=== PATIENT | female | born 1980 | race American Indian/Alaskan Native ===

== ENCOUNTER 2017-06-02 15:13 | Emergency (ER) | payer SELFPAY ==
[2017-06-02 16:34] VITALS: BP 127/51
[2017-06-02 17:38] LABS: Basophils % (Auto) 0.2 % (0.0-1.8); Eosinophils # (Auto) 0.1 K/mm3 (0.0-0.4); Eosinophils % (Auto) 0.6 % (0.0-4.3); Hematocrit 39.3 % (30.3-42.9); Hemoglobin 12.8 gm/dl (10.1-14.3); Lymphocytes # (Auto) 2.1 K/mm3 (1.2-5.4); Lymphocytes % (Auto) 23.2 % (13.4-35.0); Mean Corpuscular HGB Conc 33 % (30-34); Mean Corpuscular Hemoglobin 31 pg (28-32); Mean Corpuscular Volume 94 fl (79-97); Monocytes # (Auto) 0.6 K/mm3 (0.0-0.8); Monocytes % (Auto) 6.1 % (0.0-7.3); Platelet Count 310 K/mm3 (140-440); Red Cell Distribution Width 14.2 % (13.2-15.2)
--- NOTE | 2017-06-02 21:19 | Ultrasound Report ---
FINAL REPORT EXAM: US OB < = 14 WEEKS FETUS HISTORY: Possible ectopic R sided pain quantitative beta hCG 58,482 TECHNIQUE: Real-time sonography was performed of the gravid uterus transabdominally and endovaginally and images are submitted for interpretation. PRIORS: None. FINDINGS: The uterus appears normal and has a grossly normal appearing gestational sac. There is a normal appearing pole measuring 0.61 centimeters for an estimated gestational age of 6 weeks 3 days. A normal-appearing yolk sac is identified. The heart is beating at a rate of 121 beats per minute. The right ovary measures 3.3 x 3.4 x 3.2 cm. There a is right ovarian prominent follicle measuring 2.1 x 1.8 x 1.4 cm with a single thin septation. The left ovary is not seen. IMPRESSION: Single live intrauterine gestation, estimated gestational age 6 weeks 3 days for an estimated confinement of 01/23/2018.
--- NOTE | 2017-06-02 21:23 | Ultrasound Report ---
FINAL REPORT EXAM: US OB TRANSVAGINAL HISTORY: Possible ectopic R sided pain quantitative beta hCG 58,482 TECHNIQUE: Real-time sonography was performed of the gravid uterus transabdominally and endovaginally and images are submitted for interpretation. PRIORS: None. FINDINGS: The uterus appears normal and has a grossly normal appearing gestational sac. There is a normal appearing pole measuring 0.61 centimeters for an estimated gestational age of 6 weeks 3 days. A normal-appearing yolk sac is identified. The heart is beating at a rate of 121 beats per minute. The right ovary measures 3.3 x 3.4 x 3.2 cm. There a is right ovarian prominent follicle measuring 2.1 x 1.8 x 1.4 cm with a single thin septation. The left ovary is not seen. IMPRESSION: Single live intrauterine gestation, estimated gestational age 6 weeks 3 days for an estimated confinement of 01/23/2018.
== END 2017-06-02 22:26 | disposition left against medical advice (07) ==
LOC: ED 15:13
DX: Z53.21 Procedure and treatment not carried out due to patient leaving prior to being seen by health care provider (principal)
CPT/HCPCS: 36415; 76801; 76817; 84702; 85025; 86850; 86900; 86901

== ENCOUNTER 2017-08-21 11:43 | Outpatient (CLI) | payer MEDICAID ==
[2017-08-21 12:16] LABS: Bilirubin,Urine NEG (Negative); Blood,Urine NEG (Negative); Color,Urine Yellow (Yellow); Mucus,Urine FEW /HPF; Protein,Urine <15 mg/dL mg/dL (Negative); RBC,Urine < 1.0 /HPF (0.0-6.0); Urobilinogen,Urine < 2.0 mg/dL (<2.0)
[2017-08-21] MEDS ORDERED: NORMOSOL-R PH 7.4 1,000 ML IV ONE (12:24)
[2017-08-21] MEDS ORDERED: LACTATED RINGERS 1,000 ML IV ONE ×2 (12:27→13:00)
[2017-08-21] MEDS ORDERED: LACTATED RINGERS 1,000 ML ONE (12:27)
[2017-08-21 12:37] VITALS: BP 134/67
== END 2017-08-21 14:39 | disposition home or self-care (01) ==
LOC: TRG 11:43
PROVIDERS: ATTEND Obstetrics & Gynecology
DX: O26.892 Other specified pregnancy related conditions, second trimester (principal); K92.0 Hematemesis; R51 Headache; R10.30 Lower abdominal pain, unspecified; Z3A.20 20 weeks gestation of pregnancy
CPT/HCPCS: 59025; 81001; 96360; 96361; J7120

== ENCOUNTER 2017-09-08 14:38 | Outpatient (CLI) | payer MEDICAID ==
[2017-09-08] MEDS ORDERED: LACTATED RINGERS 500 ML IV ONE (15:44)
[2017-09-08 18:45] LABS: Hemoglobin TNR gm/dl (10.1-14.3); Red Blood Count TNR M/mm3 (3.65-5.03)
[2017-09-08 18:46] LABS: Hematocrit TNR % (30.3-42.9); Mean Corpuscular HGB Conc TNR % (30-34); Mean Corpuscular Hemoglobin TNR pg (28-32); Mean Corpuscular Volume TNR fl (79-97); Mean Platelet Volume TNR fl (6-12); Platelet Count TNR K/mm3 (140-440); Red Cell Distribution Width TNR % (13.2-15.2)
[2017-09-08 18:52] LABS: BUN/Creatinine Ratio 17; Blood Urea Nitrogen 10 mg/dL (7-17); Calcium 8.9 mg/dL (8.4-10.2); Hemolysis Index 183
--- NOTE | 2017-09-08 19:23 | Ultrasound Report ---
FINAL REPORT EXAM: US OB LIMITED HISTORY: TAJ TECHNIQUE: Ultrasound obstetrical transabdominal limited for evaluation of amniotic fluid PRIORS: Comparison is June 02, 2017 FINDINGS: Single live intrauterine gestation present. cardiac activity is present heart rate of 151 beats per minute Placenta is posterior and does not appear low lying biometric measurements were not obtained amniotic fluid is adequate. Amniotic fluid index is within normal limits 15.0 centimeters Based on prior exam estimated gestational age is 21 weeks 2 days. biometric measurements were not obtained. IMPRESSION: Amniotic fluid index within normal limits 15.0 centimeters Single live intrauterine gestation with heart rate of 151 beats per minute
[2017-09-08 19:30] LABS: Hematocrit 34.2 % (30.3-42.9); Hemoglobin 11.4 gm/dl (10.1-14.3); Mean Corpuscular HGB Conc 33 % (30-34); Mean Corpuscular Hemoglobin 30 pg (28-32); Mean Corpuscular Volume 89 fl (79-97); Platelet Count 314 K/mm3 (140-440); Red Blood Count 3.84 M/mm3 (3.65-5.03); Red Cell Distribution Width 14.1 % (13.2-15.2)
== END 2017-09-08 20:05 | disposition home or self-care (01) ==
LOC: TRG 14:38
PROVIDERS: ATTEND Obstetrics & Gynecology
DX: O09.522 Supervision of elderly multigravida, second trimester (principal); O47.02 False labor before 37 completed weeks of gestation, second trimester; Z3A.21 21 weeks gestation of pregnancy
CPT/HCPCS: 36415; 59025; 76815; 80048; 85027

== ENCOUNTER 2017-09-23 09:51 | Outpatient (CLI) | payer MEDICAID ==
[2017-09-23 10:42] LABS: Bilirubin,Urine NEG (Negative); Blood,Urine NEG (Negative); Color,Urine Yellow (Yellow); Mucus,Urine FEW /HPF; Protein,Urine <15 mg/dL mg/dL (Negative); Urobilinogen,Urine < 2.0 mg/dL (<2.0)
[2017-09-23] MEDS ORDERED: ZOFRAN IV ONE (10:43)
[2017-09-23] MEDS ORDERED: LACTATED RINGERS 1,000 ML IV ONE (10:43)
[2017-09-23 10:45] LABS: RBC,Urine < 1.0 /HPF (0.0-6.0)
[2017-09-23 12:10] LABS: Hematocrit 32.7 % (30.3-42.9); Hemoglobin 10.9 gm/dl (10.1-14.3); Mean Corpuscular HGB Conc 33 % (30-34); Mean Corpuscular Hemoglobin 30 pg (28-32); Mean Corpuscular Volume 90 fl (79-97); Platelet Count 281 K/mm3 (140-440); Red Blood Count 3.65 M/mm3 (3.65-5.03); Red Cell Distribution Width 14.2 % (13.2-15.2)
[2017-09-23 12:18] LABS: Alanine Aminotransferase 6 units/L (7-56); BUN/Creatinine Ratio 18; Blood Urea Nitrogen 7 mg/dL (7-17); Calcium 8.8 mg/dL (8.4-10.2); Hemolysis Index 10
[2017-09-23 12:22] VITALS: BP 141/70
== END 2017-09-23 12:55 | disposition home or self-care (01) ==
LOC: TRG 09:51
PROVIDERS: ATTEND Obstetrics & Gynecology
DX: O09.522 Supervision of elderly multigravida, second trimester (principal); O47.02 False labor before 37 completed weeks of gestation, second trimester; Z3A.24 24 weeks gestation of pregnancy
CPT/HCPCS: 36415; 59025; 80048; 81001; 82565; 83615; 84450; 84460; 84550; 85027; 96360; J7120; J2405

== ENCOUNTER 2017-10-08 11:08 | Outpatient (CLI) | payer MEDICAID ==
[2017-10-08] MEDS ORDERED: LACTATED RINGERS 500 ML IV ONE (13:00)
[2017-10-08 13:04] LABS: Bilirubin,Urine NEG (Negative); Blood,Urine NEG (Negative); Color,Urine Yellow (Yellow); Mucus,Urine FEW /HPF; Protein,Urine <15 mg/dL mg/dL (Negative); Urobilinogen,Urine < 2.0 mg/dL (<2.0)
[2017-10-10 08:19] VITALS: BP 111/65
== END 2017-10-08 14:25 | disposition home or self-care (01) ==
LOC: TRG 11:08
PROVIDERS: ATTEND Obstetrics & Gynecology
DX: O47.02 False labor before 37 completed weeks of gestation, second trimester (principal); Z3A.26 26 weeks gestation of pregnancy
CPT/HCPCS: 59025; 81001

== ENCOUNTER 2017-10-09 03:08 | Inpatient (IN) | payer MEDICAID ==
[2017-10-09] MEDS ORDERED: AMBIEN PO PRN (18:17)
[2017-10-09] MEDS ORDERED: COLACE PO PRN (18:17)
[2017-10-09] MEDS ORDERED: TYLENOL PO PRN (18:17)
[2017-10-09] MEDS ORDERED: ZOFRAN IV PRN (18:17)
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
[2017-10-09 18:57] LABS: Basophils % (Auto) 0.2 % (0.0-1.8); Eosinophils % (Auto) 0.5 % (0.0-4.3); Hematocrit 32.6 % (30.3-42.9); Hemoglobin 11.3 gm/dl (10.1-14.3); Lymphocytes # (Auto) 1.9 K/mm3 (1.2-5.4); Lymphocytes % (Auto) 17.6 % (13.4-35.0); Mean Corpuscular HGB Conc 35 % (30-34); Mean Corpuscular Hemoglobin 30 pg (28-32); Mean Corpuscular Volume 87 fl (79-97); Monocytes # (Auto) 0.7 K/mm3 (0.0-0.8); Monocytes % (Auto) 6.5 % (0.0-7.3); Platelet Count 358 K/mm3 (140-440); Red Blood Count 3.74 M/mm3 (3.65-5.03)
[2017-10-09 19:16] LABS: Alanine Aminotransferase 8 units/L (7-56); Albumin 3.6 g/dL (3.9-5); BUN/Creatinine Ratio 14; Blood Urea Nitrogen 7 mg/dL (7-17); Calcium 8.5 mg/dL (8.4-10.2); Hemolysis Index 14
[2017-10-09] MEDS: LACTATED RINGERS 1,000 ML IV SCH (20:51)
[2017-10-10] MEDS: LACTATED RINGERS 1,000 ML IV SCH (04:53)
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
[2017-10-10 16:51] VITALS: BP 122/59
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
--- NOTE | 2017-10-11 14:28 | Progress Note ---
Subjective - Reason for Consult Consult date: 10/11/17 Reason for consult: Psychiatric Follow-up Evaluation - Chief Complaint Chief complaint: Depression Mental Status Exam - Vital signs Last Vital Signs Temp 98.0 F 10/10/17 08:30 Pulse 83 10/10/17 16:54 Resp 18 10/10/17 08:30 BP 122/59 10/10/17 16:54 Pulse Ox 99 10/10/17 05:18 Assessment and Plan Impression: R/O PTSD. Hx of Anxiety per the patient. Today the patient is calm and cooperative during the assessment. The patient is 26 weeks . DDx: Adjustment DO Recommendation/Plan: Discussed proper sleep hygiene. The patient can follow up with [facility] for outpatient services (family therapy).
== END 2017-10-10 18:31 | disposition home or self-care (01) | DRG 781 ==
LOC: TRG 03:08 → LD 03:10 → TRG 18:33 → LD 18:34
PROVIDERS: ADMIT Obstetrics & Gynecology; ATTEND Obstetrics & Gynecology
DX: O99.342 Other mental disorders complicating pregnancy, second trimester (principal); O99.512 Diseases of the respiratory system complicating pregnancy, second trimester; J45.909 Unspecified asthma, uncomplicated; F41.9 Anxiety disorder, unspecified; F43.10 Post-traumatic stress disorder, unspecified; Z3A.26 26 weeks gestation of pregnancy; Z88.5 Allergy status to narcotic agent; Z88.1 Allergy status to other antibiotic agents; Z91.041 Radiographic dye allergy status
CPT/HCPCS: 36415; 80053; 85025; 86850; 86900; 86901; J7120

== ENCOUNTER 2017-11-03 11:56 | Outpatient (CLI) | payer MEDICAID ==
[2017-11-03 13:07] VITALS: BP 133/63
== END 2017-11-03 13:08 | disposition home or self-care (01) ==
LOC: TRG 11:56 → LD 11:57 → TRG 13:08
PROVIDERS: ATTEND Obstetrics & Gynecology
DX: O47.02 False labor before 37 completed weeks of gestation, second trimester (principal); Z3A.30 30 weeks gestation of pregnancy
CPT/HCPCS: 59025

== ENCOUNTER 2017-12-07 11:53 | Outpatient (CLI) | payer MEDICAID ==
[2017-12-07] MEDS ORDERED: LACTATED RINGERS 500 ML IV ONE (12:14)
[2017-12-07 13:14] LABS: Amphetamine Screen,Urine PRESUMPTIVE NEGATIVE; Benzodiazepines Screen,Urine PRESUMPTIVE NEGATIVE; Cannabinoid Screen,Urine PRESUMPTIVE NEGATIVE; Cocaine Screen,Urine PRESUMPTIVE NEGATIVE; Methadone Screen,Urine PRESUMPTIVE NEGATIVE; Opiate Screen,Urine PRESUMPTIVE NEGATIVE
[2017-12-07 13:22] LABS: Bacteria,Urine 1+ /HPF (Negative); Bilirubin,Urine NEG (Negative); Blood,Urine NEG (Negative); Color,Urine Yellow (Yellow); Mucus,Urine FEW /HPF; Protein,Urine <15 mg/dL mg/dL (Negative); Urobilinogen,Urine < 2.0 mg/dL (<2.0)
--- NOTE | 2017-12-07 13:35 | Ultrasound Report ---
FINAL REPORT EXAM: US OB LIMITED HISTORY: severe abd pain/ well being TECHNIQUE: Transabdominal OB ultrasound. PRIORS: None currently available. FINDINGS: Single intrauterine . Presentation: Cephalic. Placenta: Anterior and right lateral. Grade 0. No previa. No evidence for abruption. Ultrasound sensitivity for detection of abruption is 25 percent. heart rate: 137 BPM. Amniotic fluid index: 13.3 cm. Within normal limits. IMPRESSION: Single live intrauterine . No ultrasound evidence for placental abruption.
[2017-12-07] MEDS ORDERED: VISTARIL IM ONE (14:00)
[2017-12-12 19:45] VITALS: BP 158/74
== END 2017-12-07 15:30 | disposition home or self-care (01) ==
LOC: TRG 11:53 → LD 11:56 → TRG 15:30
PROVIDERS: ATTEND Obstetrics & Gynecology
DX: O47.03 False labor before 37 completed weeks of gestation, third trimester (principal); Z3A.35 35 weeks gestation of pregnancy
CPT/HCPCS: 59025; 76815; 80307; 81001; 96360; J3410; J7120

== ENCOUNTER 2017-12-25 14:54 | Outpatient (CLI) | payer MEDICAID ==
[2017-12-25 16:10] LABS: Bacteria,Urine 2+ /HPF (Negative); Bilirubin,Urine NEG (Negative); Blood,Urine NEG (Negative); Color,Urine Yellow (Yellow); Mucus,Urine FEW /HPF; Protein,Urine <15 mg/dL mg/dL (Negative); Urobilinogen,Urine < 2.0 mg/dL (<2.0)
[2017-12-25 16:21] LABS: Hematocrit 32.6 % (30.3-42.9); Hemoglobin 10.8 gm/dl (10.1-14.3); Mean Corpuscular HGB Conc 33 % (30-34); Mean Corpuscular Hemoglobin 28 pg (28-32); Mean Corpuscular Volume 84 fl (79-97); Platelet Count 296 K/mm3 (140-440); Red Blood Count 3.89 M/mm3 (3.65-5.03); Red Cell Distribution Width 14.8 % (13.2-15.2)
[2017-12-25 16:39] LABS: Alanine Aminotransferase 6 units/L (7-56); Uric Acid 5.2 mg/dL (3.5-7.6)
[2017-12-25 17:14] VITALS: BP 137/81
== END 2017-12-25 17:33 | disposition home or self-care (01) ==
LOC: TRG 14:54
PROVIDERS: ATTEND Obstetrics & Gynecology
DX: O47.03 False labor before 37 completed weeks of gestation, third trimester (principal); Z3A.37 37 weeks gestation of pregnancy; Z88.1 Allergy status to other antibiotic agents
CPT/HCPCS: 36415; 59025; 81001; 82565; 83615; 84450; 84460; 84550; 85027

== ENCOUNTER 2017-12-28 10:31 | Outpatient (CLI) | payer MEDICAID ==
[2017-12-28 12:02] LABS: Hemoglobin 11.2 gm/dl (10.1-14.3); Mean Corpuscular HGB Conc 33 % (30-34); Mean Corpuscular Hemoglobin 28 pg (28-32); Mean Corpuscular Volume 84 fl (79-97); Platelet Count 310 K/mm3 (140-440); Red Blood Count 4.06 M/mm3 (3.65-5.03); Red Cell Distribution Width 15.2 % (13.2-15.2)
[2017-12-28 12:04] LABS: Bilirubin,Urine NEG (Negative); Blood,Urine NEG (Negative); Color,Urine Yellow (Yellow); Mucus,Urine FEW /HPF; Protein,Urine <15 mg/dL mg/dL (Negative); Urobilinogen,Urine < 2.0 mg/dL (<2.0)
[2017-12-28 12:16] LABS: Alanine Aminotransferase 6 units/L (7-56)
[2017-12-28 12:56] VITALS: BP 144/74
== END 2017-12-28 13:33 | disposition home or self-care (01) ==
LOC: TRG 10:31
PROVIDERS: ATTEND Obstetrics & Gynecology
DX: O47.1 False labor at or after 37 completed weeks of gestation (principal); Z3A.38 38 weeks gestation of pregnancy; Z91.048 Other nonmedicinal substance allergy status; Z88.6 Allergy status to analgesic agent; Z88.2 Allergy status to sulfonamides; Z91.041 Radiographic dye allergy status
CPT/HCPCS: 36415; 59025; 81001; 82565; 83615; 84450; 84460; 84550; 85027

== ENCOUNTER 2018-01-05 15:09 | Inpatient (IN) | payer MEDICAID ==
[2018-01-05] MEDS ORDERED: LACTATED RINGERS 1,000 ML ONE (15:52)
[2018-01-05] MEDS ORDERED: STADOL IV PRN (16:45)
[2018-01-05] MEDS ORDERED: ZOFRAN IV PRN (16:45)
[2018-01-05] MEDS ORDERED: XYLOCAINE 2% INFILTRATI ONE (16:45)
[2018-01-05] MEDS ORDERED: MINERAL OIL PO PRN (16:45)
[2018-01-05] MEDS ORDERED: BRETHINE IVP PRN (16:45)
[2018-01-05] MEDS ORDERED: SUBLIMAZE IV PRN (16:45)
[2018-01-05] MEDS ORDERED: BRETHINE SUB-Q PRN (16:45)
[2018-01-05] MEDS ORDERED: NARCAN 0.4 MG/1 ML IV PRN (16:45)
[2018-01-05] MEDS ORDERED: PITOCin/NS 20 UNIT/1000ML DRIP 20 UNITS/1,000 ML BAG IV SCH (17:00)
[2018-01-05] MEDS ORDERED: POLYCILLIN/NS 2 GM/100 ML 2 GM/100 ML BAG IV ONE (17:08)
--- NOTE | 2018-01-05 17:08 | History and Physical Report ---
History of Present Illness Date of examination: 01/05/18 Date of admission: 01/05/18 15:39 Chief complaint: contractions History of present illness: 37 yo BF with MARCO A 01/10/2018 admitted to L&D in active labor. Pt has had multiple visits this to triage and L&D for multiple , various, complaints. This has been co-managed with [facility] for AMA and Multiparity. There has been "questionable" times with elevated B/P's but patient states today that she has had no problems with her B/P and does not take any meds for her B/P. However, she had a recent admission which showed elevated B/P's , but pt refused Labetalol, Magnesium Sulfate and induction as she did like the way it made her "feel". Has had [facility] labs obtained a couple of her visits here this . Pt states that her GBS is negative, however, records obtained today reveal Beta strep isolated. Her labs reveal non-immune rubella: all other labs wnl. Second trimester entry to care according to her records, however, pt states she started when she was 4 days . Difficult to obtain a good history as there are many "conflicts " with what pt states and what she gave as a history with previous visits and her records. Allergies to IV contrast, Morphine, Reglan, Clindamycin. Hx left ectopic , one SAB one TAB and six full term pregnancies. Hx asthma. Last asthma attack was about a year ago. Does not use inhalant. Pt was seen in office today and states that her cervix changed from 1 cm to 4 cm. Cervix in triage per RN is 6/60/-1/vtx. Contractions q 2-6 min, mild quality. FHT's category I. B/P's average 153-166/74-81. Denies any leakage. No edema noted IUP 39 2/7 weeks Advanced maternal age Multiparity GBS positive Hx asthma Second trimester entry to care Rubella non-immune Hx trichomonas this Plan: admit, antibiotics, serial B/P's, rubella vaccine after delivery, labs to include [facility] labs, observe for more active labor, anticipate vag del. 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 History: trichomonas (treated this ) Family/Genetic History: diabetes, heart disease, cancer, other (heart defect ( valvular)) - Obstetrical History Expected Date of Delivery: 01/10/18 Actual Gestation: 39 Week(s) 2 Day(s) : 10 Para: 6 (6036) Hx # Term Pregnancies: 6 Spontaneous Abortions: 1 (plus 1 ectopic) Induced : 1 Number of Living Children: 6 (see records) Medications and Allergies Allergies Allergy/AdvReac Type Severity Reaction Status Date / Time Iodinated Contrast- Oral and Allergy Severe Shortness Verified 09/23/17 09:58 IV Dye of Breath clindamycin Allergy Itching Verified 09/23/17 09:58 morphine AdvReac Mild Hives Verified 09/23/17 09:58 metoclopramide HCl AdvReac Itching Verified 09/23/17 09:58 [From [facility]] Home Medications Medication Instructions Recorded Confirmed Last Taken Type No Known Home Medications [No 12/25/17 01/05/18 Unknown History Reported Home Medications] Active Meds: Active Medications Butorphanol Tartrate (Stadol) 2 mg IV Q2H PRN PRN Reason: Pain , Severe (7-10) Ephedrine Sulfate (Ephedrine Sulfate) 10 mg IV Q2M PRN PRN Reason: Hypotension Fentanyl (Sublimaze) 100 mcg IV Q2H PRN PRN Reason: Labor Pain Lactated Ringer's (Lactated Ringers) 1,000 mls @ 125 mls/hr IV DIRECT CHRISTIAN Oxytocin/Sodium Chloride (Pitocin/Ns 20 Unit/1000ml Drip) 20 units in 1,000 mls @ 125 mls/hr IV DIRECT CHRISTIAN Mineral Oil (Mineral Oil) 30 ml PO QHS PRN PRN Reason: Constipation Naloxone HCl (Narcan 0.4 Mg/1 Ml) 0.1 mg IV Q2MIN PRN PRN Reason: Res Rate </= 8 or 02 SAT < 92% Ondansetron HCl (Zofran) 4 mg IV Q8H PRN PRN Reason: Nausea And Vomiting Terbutaline Sulfate (Brethine) 0.25 mg SUB-Q ONCE PRN PRN Reason: Hyperstimulation/Hypertonicity Terbutaline Sulfate (Brethine) 0.25 mg IVP ONCE PRN PRN Reason: Hyperstimulation/Hypertonicity Review of Systems All systems: negative Breasts: normal - Vital Signs Vital signs: Vital Signs Pulse BP 86 174/80 01/05/18 15:42 01/05/18 15:42 Temp Pulse Resp BP Pulse Ox 98.5 F 85 18 193/88 01/05/18 16:08 01/05/18 17:07 01/05/18 16:08 01/05/18 17:07 - Physical Exam Breasts: Positive: normal, other (multiple tattoos over extremities and body) Cardiovascular: Regular rate, Normal S2, No murmurs Lungs: Positive: Clear to auscultation Abdomen: Positive: other (gravid) Genitourinary (Female): Positive: normal external genitalia, normal perenium Uterus: Positive: enlarged (gravid) Anus/Rectum: Positive: normal perianal skin Extremities: Positive: normal Deep Tendon Reflex Grade: Normal +2 - Obstetrical FHR: category 1 Uterine Contraction Monitor Mode: External Cervical Dilatation: 6 (per wheel braider) Cervical Effacement Percentage: 60 (per wheel braider) station: -1 per wheel braider Uterine Contraction Frequency (min): irregular Uterine Contraction Pattern: Irregular Results All other labs normal. Assessment and Plan - Patient Problems (1) Grand multipara in labor in third trimester Current Visit: Yes Status: Acute (2) Advanced maternal age during in third trimester Current Visit: Yes Status: Acute (3) Late care Current Visit: Yes Status: Acute (4) Elevated blood pressure complicating in third trimester, antepartum Current Visit: Yes Status: Acute
--- NOTE | 2018-01-05 18:40 | Progress Note ---
Assessment and Plan - Patient Problems (1) Grand multipara in labor in third trimester Current Visit: Yes Status: Acute (2) Advanced maternal age during in third trimester Current Visit: Yes Status: Acute (3) Late care Current Visit: Yes Status: Acute (4) Elevated blood pressure complicating in third trimester, antepartum Current Visit: Yes Status: Acute Subjective - Subjective Date of service: 01/05/18 (1830) Principal diagnosis: contractions Interval history: 37 yo BF with MARCO A 01/10/2018 admitted to L&D in active labor. Pt has had multiple visits this to triage and L&D for multiple , various, complaints. This has been co-managed with [facility] for AMA and Multiparity. There has been "questionable" times with elevated B/P's but patient states today that she has had no problems with her B/P and does not take any meds for her B/P. However, she had a recent admission which showed elevated B/P's , but pt refused Labetalol, Magnesium Sulfate and induction as she did like the way it made her "feel". Has had [facility] labs obtained a couple of her visits here this . Pt states that her GBS is negative, however, records obtained today reveal Beta strep isolated. Her labs reveal non-immune rubella: all other labs wnl. Second trimester entry to care according to her records, however, pt states she started when she was 4 days . Difficult to obtain a good history as there are many "conflicts " with what pt states and what she gave as a history with previous visits and her records. Allergies to IV contrast, Morphine, Reglan, Clindamycin. Hx left ectopic , one SAB one TAB and six full term pregnancies. Hx asthma. Last asthma attack was about a year ago. Does not use inhalant. Pt was seen in office today and states that her cervix changed from 1 cm to 4 cm. Cervix in triage per RN is 6/60/-1/vtx. Contractions q 2-6 min, mild quality. FHT's category I. B/P's average 153-166/74-81. Denies any leakage. No edema noted IUP 39 2/7 weeks Advanced maternal age Multiparity GBS positive Hx asthma Second trimester entry to care Rubella non-immune Hx trichomonas this Plan: admit, antibiotics, serial B/P's, rubella vaccine after delivery, labs to include [facility] labs, observe for more active labor, anticipate vag del. Patient reports: movement normal, contractions Objective - Vital Signs Vital Signs: Vital Signs - 12hr 01/05/18 01/05/18 01/05/18 15:42 15:48 16:06 Temperature Pulse Rate 86 82 86 Respiratory Rate Blood Pressure 174/80 173/82 167/79 01/05/18 01/05/18 01/05/18 16:08 16:21 16:35 Temperature 98.5 F Pulse Rate 77 81 Respiratory 18 Rate Blood Pressure 164/75 157/74 01/05/18 01/05/18 01/05/18 16:37 16:51 17:07 Temperature Pulse Rate 80 84 85 Respiratory Rate Blood Pressure 153/74 166/81 193/88 01/05/18 01/05/18 01/05/18 17:22 17:36 17:52 Temperature Pulse Rate 77 82 74 Respiratory Rate Blood Pressure 165/74 163/74 156/70 01/05/18 01/05/18 01/05/18 18:07 18:22 18:36 Temperature Pulse Rate 77 78 81 Respiratory Rate Blood Pressure 161/72 161/72 152/70 - Exam Narrative Exam: B/P's 150's-160's/70's. Cervix per this CNM 3cm/soft/60/floating. FHT's category I. Discussed Pitocin augmentation with patient. She is agreeable. Contractions q 2-6 min. Offered epidural prior to augmentation, but pt does not desire at this time. Consulted Dr Hughes who agrees with augmentation. Plan: Pitocin augmentation, Labetalol 200 mg po, await PIH lab results
[2018-01-05] MEDS ORDERED: PITOCin/NS 30 UNIT/500ML 30 UNITS/500 ML BAG IV SCH (19:00)
[2018-01-05 19:28] LABS: Hematocrit 30.2 % (30.3-42.9); Hemoglobin 10.4 gm/dl (10.1-14.3); Mean Corpuscular HGB Conc 34 % (30-34); Mean Corpuscular Hemoglobin 29 pg (28-32); Mean Corpuscular Volume 83 fl (79-97); Platelet Count 258 K/mm3 (140-440); Red Blood Count 3.65 M/mm3 (3.65-5.03); Red Cell Distribution Width 15.2 % (13.2-15.2)
[2018-01-05 19:47] LABS: Alanine Aminotransferase 6 units/L (7-56); Uric Acid 6.4 mg/dL (3.5-7.6)
[2018-01-05] MEDS: NORMODYNE PO SCH (21:35)
[2018-01-05] MEDS: AMPICILLIN/NS 1 GM/50 ML 1 GM/50 ML BAG IV SCH (21:36)
[2018-01-05] MEDS: LACTATED RINGERS 1,000 ML IV SCH ×2 (21:37→22:39)
--- NOTE | 2018-01-05 21:46 | Progress Note ---
Assessment and Plan - Patient Problems (1) Grand multipara in labor in third trimester Current Visit: Yes Status: Acute (2) Advanced maternal age during in third trimester Current Visit: Yes Status: Acute (3) Late care Current Visit: Yes Status: Acute (4) Elevated blood pressure complicating in third trimester, antepartum Current Visit: Yes Status: Acute Subjective - Subjective Date of service: 01/05/18 (2129) Principal diagnosis: contractions Interval history: 37 yo BF with MARCO A 01/10/2018 admitted to L&D in active labor. Pt has had multiple visits this to triage and L&D for multiple , various, complaints. This has been co-managed with [facility] for AMA and Multiparity. There has been "questionable" times with elevated B/P's but patient states today that she has had no problems with her B/P and does not take any meds for her B/P. However, she had a recent admission which showed elevated B/P's , but pt refused Labetalol, Magnesium Sulfate and induction as she did like the way it made her "feel". Has had [facility] labs obtained a couple of her visits here this . Pt states that her GBS is negative, however, records obtained today reveal Beta strep isolated. Her labs reveal non-immune rubella: all other labs wnl. Second trimester entry to care according to her records, however, pt states she started when she was 4 days . Difficult to obtain a good history as there are many "conflicts " with what pt states and what she gave as a history with previous visits and her records. Allergies to IV contrast, Morphine, Reglan, Clindamycin. Hx left ectopic , one SAB one TAB and six full term pregnancies. Hx asthma. Last asthma attack was about a year ago. Does not use inhalant. Pt was seen in office today and states that her cervix changed from 1 cm to 4 cm. Cervix in triage per RN is 6/60/-1/vtx. Contractions q 2-6 min, mild quality. FHT's category I. B/P's average 153-166/74-81. Denies any leakage. No edema noted IUP 39 2/7 weeks Advanced maternal age Multiparity GBS positive Hx asthma Second trimester entry to care Rubella non-immune Hx trichomonas this Plan: admit, antibiotics, serial B/P's, rubella vaccine after delivery, labs to include PIH labs, observe for more active labor, anticipate vag del. Patient reports: loss of fluid (felt a "pop" at 2100; small amount fluid on chux pad), movement normal, contractions Objective - Vital Signs Vital Signs: Vital Signs - 12hr 01/05/18 01/05/18 01/05/18 15:42 15:48 16:06 Temperature Pulse Rate 86 82 86 Respiratory Rate Blood Pressure 174/80 173/82 167/79 01/05/18 01/05/18 01/05/18 16:08 16:21 16:35 Temperature 98.5 F Pulse Rate 77 81 Respiratory 18 Rate Blood Pressure 164/75 157/74 01/05/18 01/05/18 01/05/18 16:37 16:51 17:07 Temperature Pulse Rate 80 84 85 Respiratory Rate Blood Pressure 153/74 166/81 193/88 01/05/18 01/05/18 01/05/18 17:22 17:36 17:52 Temperature Pulse Rate 77 82 74 Respiratory Rate Blood Pressure 165/74 163/74 156/70 01/05/18 01/05/18 01/05/18 18:07 18:22 18:36 Temperature Pulse Rate 77 78 81 Respiratory Rate Blood Pressure 161/72 161/72 152/70 01/05/18 01/05/18 01/05/18 18:52 19:08 19:22 Temperature Pulse Rate 82 77 75 Respiratory Rate Blood Pressure 154/69 151/70 156/70 01/05/18 01/05/18 01/05/18 19:41 19:52 20:06 Temperature 99 F Pulse Rate 71 80 Respiratory 20 Rate Blood Pressure 161/70 146/69 01/05/18 01/05/18 01/05/18 20:22 20:38 20:51 Temperature Pulse Rate 75 72 75 Respiratory Rate Blood Pressure 154/72 160/70 156/72 01/05/18 01/05/18 01/05/18 21:07 21:22 21:35 Temperature Pulse Rate 79 85 75 Respiratory Rate Blood Pressure 185/82 203/89 176/78 01/05/18 21:37 Temperature Pulse Rate 75 Respiratory Rate Blood Pressure 176/78 - Exam Narrative Exam: Probable SROM at 2100, clear fluid with bloody show. Contractions q 2-3 min, mod quality. PIH labs wnl. B/P's increase with contractions. Desires epidural. Labetalol 200 mg po given. FHT's category I. Cervix check per RN /-4. Plan: Epidural after bolus, continue serial monitoring of B/P 's, aniticipate vag del. - Labs Labs: Abnormal Labs 01/05/18 01/05/18 19:11 19:11 WBC 14.5 H Hct 30.2 L Creatinine 0.5 L ALT 6 L Laboratory Results - last 24 hr 01/05/18 01/05/18 01/05/18 19:11 19:11 19:11 WBC 14.5 H RBC 3.65 Hgb 10.4 Hct 30.2 L MCV 83 MCH 29 MCHC 34 RDW 15.2 Plt Count 258 Creatinine 0.5 L Estimated GFR > 60 Uric Acid 6.4 AST 13 ALT 6 L Lactate Dehydrogenase 123 Blood Type O POSITIVE Antibody Screen Negative
[2018-01-05] MEDS ORDERED: NARCAN 2 MG/2 ML IV PRN (21:56)
[2018-01-05] MEDS ORDERED: fentaNYL-BUPIV 2 MCG/ML-0.125% 200 MCG/100 ML BAG EPIDURAL SCH (22:00)
--- NOTE | 2018-01-05 22:34 | Anesthesia Consultation ---
Anesthesia Consult and Med Hx Date of service: 01/05/18 - Airway Anesthetic Teeth Evaluation: Good ROM Head & Neck: Adequate Mental/Hyoid Distance: Adequate Mallampati Class: Class II Intubation Access Assessment: Probably Good - Pulmonary Exam CTA: Yes - Cardiac Exam Cardiac Exam: RRR - Pre-Operative Health Status ASA Pre-Surgery Classification: ASA3 Proposed Anesthetic Plan: Epidural, Spinal - Pulmonary Hx Smoking: No Hx Asthma: Yes (prn inhaler) Hx Respiratory Symptoms: No COPD: No - Cardiovascular System Hx Hypertension: Yes (PIH. Pre-eclampsia labs normal. Currently receiving labetalol PO.) Hx Heart Attack/AMI: No - Central Nervous System Hx Neuromuscular Disorder: No Hx Seizures: No CVA: No Hx Back Pain: No Hx Psychiatric Problems: No - Endocrine Hx Renal Disease: No Hx Liver Disease: No Hx Insulin Dependent Diabetes: No Hx Non-Insulin Dependent Diabetes: No Hx Thyroid Disease: No - Hematic Hx Anemia: Yes - Other Systems Hx Alcohol Use: No Hx Obesity: Yes - Additional Comments Anesthesia Medical History Comments: Hypertensive this but noncompliant with outpatient medications. Labor being augmented for elevated pressures. Pre-eclampsia labs normal.
[2018-01-06] MEDS: AMPICILLIN/NS 1 GM/50 ML 1 GM/50 ML BAG IV SCH (01:27)
--- NOTE | 2018-01-06 05:38 | Procedure Note ---
OB Delivery Note - Delivery Date of Delivery: 01/06/18 (@0451) Surgeon: DAVID TAMAYO Estimated blood loss: 200cc - Vaginal Delivery presentation: vertex Delivery position: OA Intrapartum events: meconium (terminal) Delivery induction: none Delivery augmentation: pitocin Delivery monitor: external FHT, external uterine Route of delivery: Delivery placenta: spontaneous Delivery cord: nuchal cord (x1), 3 umbilical vessels Episiotomy: none Delivery laceration: none Anesthesia: epidural Delivery comments: Progressed to spont vag del of live male inf over intact perineum @ 0457. Nuchal cord X 1. Baby placed on maternal chest. 8/9. Spont del of intact placenta with 3 vessels @ 0504. Pitocin to IVF per RN. Fundus firm. Bleeding wnl. EBL 200. No lacerations. initiated in L&D. Mother and baby in stable condition. - A at 1 minute: 8 at 5 minutes: 9 Gender: Male (weight 3259 (7-3 oz))
[2018-01-06] MEDS ORDERED: PHENERGAN PO PRN (05:39)
[2018-01-06] MEDS ORDERED: LANSINOH TP PRN (05:39)
[2018-01-06] MEDS ORDERED: TUCKS PAD TP PRN (05:39)
[2018-01-06] MEDS ORDERED: MILK OF MAGNESIA PO PRN (05:39)
[2018-01-06] MEDS ORDERED: DULCOLAX PR PRN (05:39)
[2018-01-06] MEDS ORDERED: PHENERGAN PR PRN (05:39)
[2018-01-06] MEDS ORDERED: ZOFRAN IV PRN (05:39)
[2018-01-06] MEDS ORDERED: BENADRYL PO PRN (05:39)
[2018-01-06] MEDS ORDERED: SODIUM CHLORIDE FLUSH SYRINGE 10 ML IV NR (06:00)
[2018-01-06] MEDS ORDERED: PITOCin/NS 20 UNIT/1000ML DRIP 20 UNITS/1,000 ML BAG IV SCH (06:00)
[2018-01-06 10:36] LABS: Hematocrit 27.6 % (30.3-42.9); Hemoglobin 9.5 gm/dl (10.1-14.3)
[2018-01-06] MEDS: NORCO 5/325 PO PRN ×2 (11:00→17:05)
[2018-01-06] MEDS: NORMODYNE PO SCH ×2 (11:00→22:00)
[2018-01-06] MEDS: MOTRIN PO SCH ×2 (12:00→18:00)
[2018-01-06 19:45] LABS: Hematocrit 28.8 % (30.3-42.9); Hemoglobin 9.5 gm/dl (10.1-14.3)
[2018-01-06] MEDS: TYLENOL PO PRN (23:15)
[2018-01-07] MEDS ORDERED: BOOSTRIX IM ONE (06:00)
[2018-01-07] MEDS ORDERED: M-M-R II VACCINE SUB-Q ONE (06:00)
[2018-01-07] MEDS: TYLENOL PO PRN (06:54)
[2018-01-07] MEDS: MOTRIN PO SCH ×3 (06:58→14:08)
--- NOTE | 2018-01-07 08:53 | Progress Note ---
Assessment and Plan - Patient Problems (1) (normal spontaneous vaginal delivery) Onset Date: 01/07/18 Current Visit: Yes Status: Resolved Plan to address problem: A: S/P - PPD #1 Doing well Asymptomatic anemia - stable P: May go home tomorrow. Subjective - Subjective Date of service: 01/07/18 Principal diagnosis: s/p - PPD #1 Interval history: Pt is feeling well except swelling of her feet, otherwise bleeding has improved. Patient reports: appetite normal, voiding normally, pain well controlled, ambulating normally, no dizzy ambulation, no nauseated : doing well, in NICU Objective - Vital Signs Latest vital signs: Vital Signs Temp Pulse Resp BP BP Pulse Ox 01/07/18 06:54 20 01/07/18 05:14 76 20 148/55 01/06/18 16:14 97.7 F 99 H 20 143/65 99 01/06/18 12:39 97.9 F 88 20 136/73 99 01/06/18 11:00 137/77 Intake and Output 01/06/18 01/07/18 01/07/18 22:59 06:59 14:59 Intake Total 120 Balance 120 Intake: Oral 120 Other: Total, Intake Amount 120 # Voids Void 1 - Exam Cardiovascular: Present: Regular rate Lungs: Present: Clear to auscultation Abdomen: Present: normal appearance, soft Uterus: Present: normal, firm, fundal height below umbilicus Extremities: Present: normal - Labs Labs: Abnormal lab results 01/06/18 01/06/18 Range/Units 10:13 18:29 Hgb 9.5 L 9.5 L (10.1-14.3) gm/dl Hct 27.6 L 28.8 L (30.3-42.9) % Laboratory Tests 01/05/18 01/05/18 01/05/18 19:11 19:11 19:11 WBC 14.5 H RBC 3.65 Hgb 10.4 Hct 30.2 L MCV 83 MCH 29 MCHC 34 RDW 15.2 Plt Count 258 Creatinine Estimated GFR Uric Acid AST ALT Lactate Dehydrogenase RPR Nonreactive Blood Type O POSITIVE Antibody Screen Negative 01/05/18 01/06/18 01/06/18 19:11 10:13 18:29 WBC RBC Hgb 9.5 L 9.5 L Hct 27.6 L 28.8 L MCV MCH MCHC RDW Plt Count Creatinine 0.5 L Estimated GFR > 60 Uric Acid 6.4 AST 13 ALT 6 L Lactate Dehydrogenase 123 RPR Blood Type Antibody Screen
[2018-01-07] MEDS: NORMODYNE PO SCH (10:00)
[2018-01-08] MEDS: NORMODYNE PO SCH ×2 (00:36→10:00)
[2018-01-08] MEDS: TYLENOL PO PRN ×2 (00:37→11:35)
[2018-01-08] MEDS ORDERED: PREPARATION H PR PRN (03:03)
--- NOTE | 2018-01-08 09:52 | Discharge Summary ---
Providers - Providers Date of Admission: 01/05/18 15:39 Date of discharge: 01/08/18 Attending physician: TASHA ELDER Primary care physician: TASHA ELDER Hospitalization Reason for admission: active labor, IUP at term Delivery: Episiotomy: none Laceration: none Other procedures: none complications: none Discharge diagnosis: IUP at term delivered [place] baby: male Hospital course: Unremarkable. Condition at discharge: Good Disposition: DC-01 TO HOME OR SELFCARE - Discharge Diagnoses (1) (normal spontaneous vaginal delivery) Status: Resolved Plan - Discharge Medications Prescriptions: Ferrous Sulfate [Feosol 325 MG tab] 325 mg PO BID #60 tablet Ibuprofen [Motrin 600 MG tab] 600 mg PO Q6H #30 tablet Vit Calc,Iron,Folic [ Vitamins] 1 each PO DAILY #30 tablet - Provider Discharge Summary Activity: routine, no sex for 6 weeks, no heavy lifting 4 weeks, no strenuous exercise Diet: routine Instructions: routine Additional instructions: [] Smoking cessation referral if applicable(refer to patient education folder for contact #) [] Refer to [facility]'s [facility] Booklet Call your doctor immediately for: * Fever > 100.5 * Heavy vaginal bleeding ( >1 pad per hour) * Severe persistent headache * Shortness of breath * Reddened, hot, painful area to leg or breast * Drainage or odor from incision. * Keep incision clean and dry at all times and follow doctor's instructions regarding bathing/showering - Follow up plan Follow up: TASHA ELDER MD [Primary Care Provider] - 6 Weeks DAMARIS YOUNG CNM [Advanced Practice Nurse] - 6 Weeks
[2018-01-08 17:00] VITALS: BP 146/69
== END 2018-01-08 19:20 | disposition home or self-care (01) | DRG 774 ==
LOC: TRG 15:09 → LD 15:39 → OB 01-06 08:09
PROVIDERS: ADMIT Obstetrics & Gynecology; ATTEND Obstetrics & Gynecology
PROC: 10E0XZZ Delivery of Products of Conception, External Approach (ICD-10-PCS; principal; 2018-01-06)
PROC: 3E0R3BZ Introduction of Anesthetic Agent into Spinal Canal, Percutaneous Approach (ICD-10-PCS; 2018-01-06)
PROC: 00HU33Z Insertion of Infusion Device into Spinal Canal, Percutaneous Approach (ICD-10-PCS; 2018-01-06)
PROC: 3E0234Z Introduction of Serum, Toxoid and Vaccine into Muscle, Percutaneous Approach (ICD-10-PCS; 2018-01-07)
DX: O16.4 Unspecified maternal hypertension, complicating childbirth (principal); O99.824 Streptococcus B carrier state complicating childbirth; O99.52 Diseases of the respiratory system complicating childbirth; J45.909 Unspecified asthma, uncomplicated; D64.9 Anemia, unspecified; O77.0 Labor and delivery complicated by meconium in amniotic fluid; O69.81X0 Labor and delivery complicated by cord around neck, without compression, not applicable or unspecified; Z82.49 Family history of ischemic heart disease and other diseases of the circulatory system; Z83.3 Family history of diabetes mellitus; Z3A.39 39 weeks gestation of pregnancy; Z91.041 Radiographic dye allergy status; Z37.0 Single live birth; Z80.9 Family history of malignant neoplasm, unspecified; Z88.5 Allergy status to narcotic agent; Z23 Encounter for immunization; O98.32 Other infections with a predominantly sexual mode of transmission complicating childbirth; A59.9 Trichomoniasis, unspecified; O99.02 Anemia complicating childbirth
CPT/HCPCS: 36415; 82565; 83615; 84450; 84460; 84550; 85014; 85018; 85027; 86592; 86850; 86900; 86901; 90707; 99211; A6250; G0463; J0290; J2590; J3010; J7120

== ENCOUNTER 2019-01-29 09:10 | Outpatient (CLI) | payer MEDICAID ==
--- NOTE | 2019-01-29 11:56 | Mammography Report ---
BILATERAL DIGITAL DIAGNOSTIC MAMMOGRAM WITH CAD BILATERAL LIMITED BREAST ULTRASOUND INDICATION: Bilateral breast pain. TECHNIQUE: Digital bilateral mammographic imaging was performed. Bilateral routine views and latera l, rolled cc and spot compression views of the left breast were performed. This examination was inter preted with the benefit of Computer-Aided Detection (CAD) analysis. COMPARISON: None. FINDINGS: Breast Density: The breasts are heterogeneously dense, which may obscure small masses. There is no evidence of dominant mass, suspicious calcifications or architectural distortion in eithe r breast. Ultrasound Findings: Targeted ultrasound evaluation was performed of the area of interest. Ultrasou nd was performed in the area of pain and demonstrated no mass, cyst or shadowing. IMPRESSION: Negative mammogram and negative bilateral breast ultrasound. BI-RADS Category 1: Negative. Recommend routine screening mammography in one year. A "normal" or negative report should not discourage follow up or biopsy of a clinically significant f inding. A written summary of these findings will be mailed to the patient. The patient will be entered into a mammography reporting system which will generate a reminder letter for the patient's next appointmen t at the appropriate interval. FURTHER INFORMATION: According to the [employer], yearly mammograms are recommend ed starting at age 40 and continuing as long as a woman is in good health. Breast MRI is recommended for women with an approximately 20-25% or greater lifetime risk of breast cancer, including women wi th a strong family history of breast or ovarian cancer and women who have been treated for Hodgkin's disease. Signer Name: Jaun Schafer MD Signed: 01/29/2019 11:52 AM Workstation Name: [id number]
== END 2019-01-29 09:11 | disposition home or self-care (01) ==
LOC: MAMMO 09:10
PROVIDERS: ATTEND Advanced Practice Midwife
DX: N64.4 Mastodynia (principal)
CPT/HCPCS: 77066